=== PATIENT | female | born 1965 | race African-American/Black ===

== ENCOUNTER → 2020-03-28 | Day surgery (SDC) | payer MEDICARE, OTHER ==
[2020-03-02 10:52] LABS: BASOPHILS % 0.5 % (0.0-1.0); EOSINOPHILS # (AUTO) 0.1 (0.0-0.4); EOSINOPHILS % 1.2 % (0.0-6.0); HEMATOCRIT 43.4 % (34.2-44.1); HEMOGLOBIN 13.6 g/dL (12.0-16.0); LYMPHOCYTES # (AUTO) 1.8 (1.0-3.2); LYMPHOCYTES % 30.3 % (18.0-39.1); MEAN CORPUSCULAR HEMOGLOBIN 25.2 pg (28-32); MEAN CORPUSCULAR HGB CONC 31.3 g/dL (31-35); MEAN CORPUSCULAR VOLUME 80.5 fL (81-99); MONOCYTES # (AUTO) 0.4 (0.2-0.8); MONOCYTES % 6.8 % (4.4-11.3); NEUTROPHILS # (AUTO) 3.7 (2.1-6.9); NEUTROPHILS % 60.9 % (38.7-80.0); PLATELET COUNT 136 x10e3/uL (140-360); RED BLOOD COUNT 5.39 x10e6/uL (3.6-5.1); RED CELL DISTRIBUTION WIDTH 14.4 % (11.7-14.4)
[2020-03-02 11:14] LABS: ANION GAP 17.6 mmol/L (8-16); BLOOD UREA NITROGEN 17 mg/dL (7-26); BUN/CREATININE RATIO 20 (6-25); CALCIUM 9.9 mg/dL (8.4-10.2); CARBON DIOXIDE 19 mmol/L (22-29); CHLORIDE 107 mmol/L (98-107); CREATININE, SERUM 0.84 mg/dL (0.57-1.11); EST GLOMERULAR FILTRATION RATE > 60 ML/MIN (60-); GLUCOSE 83 mg/dL (74-118); POTASSIUM 3.6 mmol/L (3.5-5.1); SODIUM 140 mmol/L (136-145)
--- NOTE | 2020-03-24 13:54 | Diagnostic Imaging Report ---
EXAMINATION: CHEST 2 VIEWS INDICATION: ^[id number] ^1330 ^PRE-OP COMPARISON: None FINDINGS: TUBES and LINES: None. LUNGS: Lungs are well inflated. Mild chronic appearing changes in the lungs. There is no evidence of pneumonia or pulmonary edema. PLEURA: No pleural effusion or pneumothorax. HEART AND MEDIASTINUM: The cardiomediastinal silhouette is unremarkable. BONES AND SOFT TISSUES: No acute osseous lesion. Soft tissues are unremarkable. UPPER ABDOMEN: No free air under the diaphragm. IMPRESSION: No acute thoracic abnormality. Signed by: Dr. Shen Pleletier M.D. on 03/24/2020 1:50 PM
[~2020-03-28] MED LIST: ASPIRIN81 MG PO; ATORVASTATIN CA20 MG PO; DEXAMETHASONE SOD PHOS INJ 4 MG/ML VIAL ONE; FENTANYL CITRATE/PF 100MCG/2 ML INJ ONE; FLECAINIDE ACE100 MG PO; HYDROCHLOROTHIA25 MG; KETOROLAC TROMETHAMINE 30 MG/ML VIAL ONE; LIDOCAINE HCL 2% JELLY 5 ML TUBE ONE; LIDOCAINE HCL 2% LOCAL INJ 5 ML SDV VIAL INJ ONE; LOSARTAN POTASS25 MG PO; MIDAZOLAM HCL 2 MG/2 ML VIAL ONE; MOTRIN200 MG PO; ONDANSETRON HCL INJ 2MG/ML 2ML 2 MG/ML VIAL ONE; PROPOFOL IV EMULSION 10 MG/ML 20 ML VIAL ONE; PROVENTIL HFA6.7 GM INH; SEVOFLURANE INHAL SOLN 250 ML PEN BTL ONE; SYMBICORT 80-10.2 GM INH; TYLENOL325 M2; VITAMIN D32400 UNIT/ PO
--- NOTE | 2020-03-28 07:15 | NUR ---
SPIRITUAL CARE - Pre-Surgery Assessment: Pt in bed. Pt's son's father at bedside. Pt reported supportive attention from family and friends. Intervention: Photocomposition Keyboard Operator provided pastoral presence, hospitality, sympathetic listening, and prayer. Acquainted pt with availability of golf caddy while hospitalized. Outcome: Pt expressed appreciation for visit. No need for follow up indicated at this time. DAYAMI Treviño Spiritual Care Department O: [phone]
[2020-03-28 10:35] VITALS: BP 124/81
--- NOTE | 2020-03-28 10:46 | Operative Report ---
DATE OF PROCEDURE: SURGEON: Jamaica Dey MD PREOPERATIVE DIAGNOSIS: Large cervical polyp. POSTOPERATIVE DIAGNOSIS: Large cervical polyp. PROCEDURES: Hysteroscopy, D and C, polypectomy. COMPLICATIONS: None. ESTIMATED BLOOD LOSS: Minimal. DESCRIPTION OF PROCEDURE: The patient was taken to the OR. General anesthesia was induced. The patient was prepped and draped in a normal sterile fashion, placed in dorsal lithotomy position. A weighted speculum was placed inside the vagina. Cervix was grasped with single-tooth tenaculum. The cervix showed a large 2 cm cervical polyp. The cervix was dilated to Hegar's 8. Hysteroscope was introduced, showed a small endometrial polyp. Using the soft tissue shaver, the TruClear cyst and endometrial polyp was removed. Hysteroscope was removed and sharp curettings were obtained. Cervical polyp was held with the ring forceps, was then removed and minimal bleeding from the polyp bed was cauterized using with the Bovie. The patient tolerated the procedure well. Laps and needle counts correct x3 at the end of procedure. Jamaica Dey MD DD/TAMIA /[id number]
== END | disposition home or self-care (01) ==
LOC: OR 05:51
PROVIDERS: ATTEND Obstetrics & Gynecology
DX: N84.0 Polyp of corpus uteri (principal); R73.03 Prediabetes; J45.909 Unspecified asthma, uncomplicated; I10 Essential (primary) hypertension; I48.91 Unspecified atrial fibrillation; F43.10 Post-traumatic stress disorder, unspecified; F41.9 Anxiety disorder, unspecified; Z88.6 Allergy status to analgesic agent; Z01.810 Encounter for preprocedural cardiovascular examination; Z01.812 Encounter for preprocedural laboratory examination; Z01.818 Encounter for other preprocedural examination; Z11.59 Encounter for screening for other viral diseases; Z79.82 Long term (current) use of aspirin
CPT/HCPCS: 36415; 58558; 71046; 80048; 81025; 85025; 88305; 93005; J1100; J1885; J2001 ×2; J2250; J2405; J2704; J3010; U0002 ×2